=== PATIENT | female | born 1970 | race Caucasian/White ===

== ENCOUNTER 2022-10-22 06:41 | Day surgery (SDC) | payer OTHER ==
[2022-10-22] MEDS ORDERED: fentaNYL 50 MCG/ML SDV ONE (07:27)
[2022-10-22] MEDS ORDERED: Midazolam 1 MG/ML 2 ML SDV ONE (07:27)
[2022-10-22] MEDS ORDERED: Propofol 200 MG/20 ML SDV ONE ×2 (07:27→08:58)
[2022-10-22] MEDS ORDERED: Lactated Ringers 1,000 ML IV SCH (07:30)
== END 2022-10-22 10:02 | disposition home or self-care (01) ==
LOC: JP.SDS 06:41
PROVIDERS: ATTEND Student in an Organized Health Care Education/Training Program
DX: D12.7 Benign neoplasm of rectosigmoid junction (principal); D12.8 Benign neoplasm of rectum; K51.40 Inflammatory polyps of colon without complications; I10 Essential (primary) hypertension; E78.5 Hyperlipidemia, unspecified; E11.9 Type 2 diabetes mellitus without complications; E03.9 Hypothyroidism, unspecified
CPT/HCPCS: 45380; 45385; J2250; J2704; J3010; J7120